=== PATIENT | male | born 1940 | race Caucasian/White ===

== ENCOUNTER 2019-06-06 12:57 | Emergency (ER) | payer MEDICARE, BC ==
[2019-06-06 13:26] VITALS: BP 126/58
--- NOTE | 2019-06-06 13:40 | UC ---
Skin Complaint HPI - HPI Summary HPI Summary: Pt is accompanied by daughter. Pt reports that he was mowing his lawn on a ride on mower and got his left lower anterior leg caught against tree/trunk/bark and concrete swimming pool installer three days prior. Last tetanus 2009. Pt states he has been applying antibiotic ointment with no improvement of wound. Pt states that left lower leg around wound has become increasingly erythematous, tender and mildly swollen. - History of Current Complaint Chief Complaint: UCSkin Time Seen by Provider: 06/06/19 13:14 Stated Complaint: LEFT LEG SKIN/RIGHT FLANK INJ Hx Obtained From: Patient Onset/Duration: Gradual Onset, Lasting Days, Still Present, Worse Since - onset Skin Exposure Onset/Duration: Days Ago - 3 Timing: Constant Onset Severity: Mild Current Severity: Moderate Pain Intensity: 0 Location: Discrete - left lower extremity Character: Redness, Painful Aggravating Factor(s): Touch Alleviating Factor(s): Nothing Associated Signs & Symptoms: Positive: Tenderness Related History: Trauma - mild trauma, abrasion after leg caught between concrete swimming pool installer and tree trunk - Allergy/Home Medications Allergies/Adverse Reactions: Allergies Allergy/AdvReac Type Severity Reaction Status Date / Time No Known Allergies Allergy Verified 07/23/14 11:50 Home Medications: Home Medications Mobile-3 Fatty Acids/Fish Oil [Fish Oil 1,000 mg Softgel] 1 each PO 06/06/19 [ History Confirmed 06/06/19] Sertraline* [Zoloft*] 100 mg PO DAILY 06/06/19 [History Confirmed 06/06/19] PMH/Surg Hx/FS Hx/Imm Hx Previously Healthy: Yes Cardiovascular History: Cardiac Disease, Hypertension Psychological History: Depression - Surgical History Surgical History: Yes Surgery Procedure, Year, and Place: Stent placement, prostate surgery - Family History Known Family History: Positive: Cardiac Disease - Social History Occupation: Retired Alcohol Use: Occasionally Substance Use Type: None Smoking Status (MU): Former Smoker Have You Smoked in the Last Year: No When Did the Patient Quit Smoking/Using Tobacco: 40 years ago - Immunization History Most Recent Tetanus Shot: 2008 Vaccination Up to Date: No Review of Systems All Other Systems Reviewed And Are Negative: Yes Constitutional: Positive: Negative Skin: Positive: Other - dried scab, erythema Eyes: Positive: Negative ENT: Positive: Negative Respiratory: Positive: Negative Cardiovascular: Positive: Negative Gastrointestinal: Positive: Negative Genitourinary: Positive: Negative Motor: Positive: Negative Neurovascular: Positive: Negative Musculoskeletal: Positive: Edema - mild edema, non pitting Neurological: Positive: Negative Psychological: Positive: Negative Is Patient Immunocompromised?: No Physical Exam Triage Information Reviewed: Yes Appearance: Well-Appearing Vital Signs: Initial Vital Signs Temp 98.8 F 06/06/19 13:18 Pulse 57 06/06/19 13:18 Resp 18 06/06/19 13:18 BP 126/58 06/06/19 13:18 Pulse Ox 99 06/06/19 13:18 Vital Signs Reviewed: Yes Eye Exam: Normal ENT Exam: Normal Dental Exam: Normal Neck exam: Normal Respiratory Exam: Normal Cardiovascular Exam: Normal Musculoskeletal: Positive: Edema @ - non pittign edema left lower extremity Neurological Exam: Normal Psychological Exam: Normal Skin Exam: Other - erythematous area ~ 10cm length and 5 cm wide. scab is dried , ~ 8 cm X 3 cm Course/Dx - Differential Diagnoses - Skin Complaint Differential Diagnoses: Cellulitis, MRSA - Diagnoses Provider Diagnosis: Cellulitis Discharge - Sign-Out/Discharge Documenting (check all that apply): Patient Departure All imaging exams completed and their final reports reviewed: No Studies - Discharge Plan Condition: Stable Disposition: HOME Prescriptions: Cephalexin CAP* [Keflex 500 CAP*] 500 mg PO Q8H #30 cap Patient Education Materials: Wound Infection (ED), Cellulitis (ED) Referrals: Thiago Richmond DO [Primary Care Provider] - 4 Days Additional Instructions: Please monitor for worsening wound infection. Please follow up with your PCP in 3-4 days for wound care healing evaluation. If your symptoms worsen, please go directly to the closest emergency room. - Billing Disposition and Condition Condition: STABLE Disposition: Home - Attestation Statements Provider Attestation: I was available for consult. This patient was seen by the N[facility]. The patient was not presented to, seen by, or examined by me. -Florina
[2019-06-06] MEDS ORDERED: Tetan/Diph/Pertus SYR(Tdap)* 0.5 ML SYR(BOOSTRIX) use SYR IM ONE (13:47)
== END 2019-06-06 14:01 | disposition home or self-care (01) ==
LOC: UCCORT 12:57
DX: L03.116 Cellulitis of left lower limb (principal); Z23 Encounter for immunization; F32.9 Major depressive disorder, single episode, unspecified; Z95.5 Presence of coronary angioplasty implant and graft; Z87.891 Personal history of nicotine dependence
CPT/HCPCS: 90471; 90715; 99202; G0463